=== PATIENT | male | born 1935 | race Caucasian/White ===

== ENCOUNTER 2017-10-26 15:42 | Inpatient (IN) | payer MEDICARE, BC ==
[2017-10-26] VITALS (7 sets, daily range): BP systolic 156–180; BP diastolic 72–81; PULSE 74–91; RESP 16–20; TEMP 101.3; O2SAT 95–97
[~2017-10-26] VITALS: Ht 180.3 cm; Wt 96.0 kg
[2017-10-26] MEDS ORDERED: SODIUM CHLOR 0.9% 1000 ML INJ 1,000 ML IV ONE (15:45)
--- NOTE | 2017-10-26 15:50 | PD ---
HPI Chief Complaint: Stroke Alert Time Seen by Provider: 15:45 Travel History International Travel<30 days: No Contact w/Intl Traveler<30days: No History of Present Illness HPI 81-year-old male arrives as a stroke alert. Approximately 1 hour 40 minutes prior to ER arrival the patient developed aphagia. He right-sided facial droop was also observed. EMS reports blood glucose is about 85 and the blood pressure was about 160/90. Patient reportedly has a history of stroke. He takes Plavix. He does not take any direct oral anticoagulant or Coumadin or additional anticoagulants otherwise. No seizure-like activity proceeded this started according to EMS. FORMERLY [facility], [facility] Social History Tobacco Use: No Allergies-Medications (Allergen,Severity, Reaction): Coded Allergies: amoxicillin (Verified Allergy, Intermediate, Diarrhea, 10/26/17) Reported Meds & Prescriptions Reported Meds & Active Scripts Active Reported Aspirin 81 Mg Chew 81 Mg CHEW DAILY Allopurinol 100 Mg Tab 100 Mg PO DAILY Amlodipine (Amlodipine Besylate) 5 Mg Tab 5 Mg PO DAILY Simvastatin 40 Mg Tab 40 Mg PO HS Plavix (Clopidogrel Bisulfate) 75 Mg Tab 75 Mg PO DAILY Atenolol 25 Mg Tab 25 Mg PO DAILY Metoprolol Tartrate 50 Mg Tab 50 Mg PO DAILY Review of Systems ROS Limitations: Clinical Condition Physical Exam Narrative GENERAL: 81 M, WNWD, SKIN: Warm and dry. HEAD: Atraumatic. Normocephalic. EYES: Pupils equal and round. No scleral icterus. No injection or drainage. ENT: No nasal bleeding or discharge. Mucous membranes pink and moist. NECK: Trachea midline. No JVD. CARDIOVASCULAR: Regular rate and rhythm. RESPIRATORY: No accessory muscle use. Clear to auscultation. Breath sounds equal bilaterally. GASTROINTESTINAL: Abdomen soft, non-tender, nondistended. Hepatic and splenic margins not palpable. MUSCULOSKELETAL: Extremities without clubbing, cyanosis, or edema. No obvious deformities. NEUROLOGICAL: Aphasia present. No dysarthria. Minima R facial droop. No focal CN otherwise. No pronator drift or extremity weakness. PSYCHIATRIC: Appropriate mood and affect; insight and judgment normal. Data Data Last Documented VS Vital Signs Date Time Temp Pulse Resp B/P (MAP) Pulse Ox O2 Delivery O2 Flow Rate FiO2 10/26/17 16:14 96 Nasal Cannula 2.00 10/26/17 15:51 82 18 156/72 (100) Orders Orders Diet Npo (10/26/17 Dinner) Activity Bed Rest (10/26/17 ) Electrocardiogram (10/26/17 ) I-Stat Profile (10/26/17 15:45) Prothrombin Time / Inr (Pt) (10/26/17 15:45) Act Partial Throm Time (Ptt) (10/26/17 15:45) Complete Blood Count With Diff (10/26/17 15:45) Fibrinogen (10/26/17 15:45) Creatine Kinase (Cpk) (10/26/17 15:45) Troponin I (10/26/17 15:45) Drug Screen, Random Urine (10/26/17 15:45) Type And Screen (10/26/17 15:45) Ct Brain W/O Iv Contrast(Rout) (10/26/17 ) Cta Brain W Iv Contrast W 3d (10/26/17 15:45) Cta Neck W Iv Contrast W 3d (10/26/17 15:45) Consult Neurology (10/26/17 ) Blood Glucose (10/26/17 15:45) Ecg Monitoring (10/26/17 15:45) Neuro Checks Q2HX12,Q4H (10/26/17 15:45) Nursing Bedside Swallow Assess .ONCE (10/26/17 15:45) Iv Access Insert/Monitor (10/26/17 15:45) NPO (10/26/17 15:45) Oximetry (10/26/17 15:45) Resp Oxygen Nc Stroke (10/26/17 ) Sodium Chlor 0.9% 1000 Ml Inj (Ns 1000 M (10/26/17 15:45) Cath For Specimen (10/26/17 15:45) ^ Call Pharmacy (10/26/17 15:54) Nih Stroke Scale - Nihss .ONCE (10/26/17 15:54) Urinary Catheter Insert/Apply (10/26/17 15:54) Anticoagulant Alert (10/26/17 15:54) ^ Post Infusion Restrictions (10/26/17 15:54) ^ Medication Alert (10/26/17 15:54) Vital Signs (Adult) .As directed (10/26/17 15:54) Notify Dr: Blood Pressure (10/26/17 15:54) ^ Medication Alert (10/26/17 15:54) Alteplase Bolus (Activase Bolus) (10/26/17 16:00) Alteplase Drip (Activase Drip) (10/26/17 16:00) Sodium Chloride 0.9% Inj (Ns Inj) (10/26/17 16:00) Misc Nursing Information (10/26/17 16:00) Resp Oxygen Nc Stroke (10/26/17 ) Ct Brain W/O Iv Contrast(Rout) (10/27/17 ) (Hub Use Only)Inp Phy Cons/Ref (10/26/17 ) Iodixanol 320 Inj (Rad Ct) (Visipaque 32 (10/26/17 16:11) Admit Order (Ed Use Only) (10/26/17 ) Power Sewing Machine Operator / Telemetry RUBEN.Q8H (10/26/17 17:13) Vital Signs (Adult) Q4H (10/26/17 17:13) Activity Bed Rest (10/26/17 17:13) Labs Laboratory Tests Test 10/26/17 15:45 White Blood Count 6.5 TH/MM3 Red Blood Count 4.85 MIL/MM3 Hemoglobin 14.9 GM/DL Bedside Hemoglobin 15.6 G/DL Hematocrit 45.0 % Bedside Hematocrit 46.0 % Mean Corpuscular Volume 92.9 FL Mean Corpuscular Hemoglobin 30.7 PG Mean Corpuscular Hemoglobin Concent 33.1 % Red Cell Distribution Width 14.8 % Platelet Count 184 TH/MM3 Mean Platelet Volume 7.9 FL Neutrophils (%) (Auto) 74.1 % Lymphocytes (%) (Auto) 11.5 % Monocytes (%) (Auto) 11.3 % Eosinophils (%) (Auto) 2.3 % Basophils (%) (Auto) 0.8 % Neutrophils # (Auto) 4.8 TH/MM3 Lymphocytes # (Auto) 0.7 TH/MM3 Monocytes # (Auto) 0.7 TH/MM3 Eosinophils # (Auto) 0.1 TH/MM3 Basophils # (Auto) 0.1 TH/MM3 CBC Comment DIFF FINAL Differential Comment Prothrombin Time 10.4 SEC Prothromb Time International Ratio 1.0 RATIO Activated Partial Thromboplast Time 24.9 SEC Fibrinogen 442 mg/dL Bedside Sodium 140 MMOL/L Bedside Potassium 4.7 MMOL/L Bedside Chloride 102 MMOL/L Bedside Blood Urea Nitrogen 21 MG/DL Bedside Creatinine 1.3 MG/DL Bedside Glucose 122 MG/DL Hemoglobin A1c 5.5 % Total Creatine Kinase 43 U/L Troponin I LESS THAN 0.02 NG/ML [facility] Medical Screen Exam Complete: Yes Emergency Medical Condition: Yes Differential Diagnosis Hemorrhagic stroke, ischemic stroke, seizure Narrative Course CBC & BMP Diagram 10/26/17 15:[address] 10/26/17 0000 Signed Impressions: Service Date/Time: October 15:51 - CONCLUSION: Unremarkable study except for old strokes in left temporal and low parietal region on the left. Quinten Handley MD The patient has aphasia with trace right-sided facial droop. After discussing the case in great detail with the she reveals he had rectal bleeding about 2 weeks ago while on Xarelto which unfortunately renders the patient ineligible for TPA administration. This was explained to the and the patient who verbalizes understanding. We will proceed with admission including diagnostic evaluation under [facility] service. D/W Dr Pate. Critical Care Narrative Aggregate critical care time was 40 minutes. Time to perform other separately billable procedures was not included in the critical care time. My time did not include minutes spent treating any other patients simultaneously or on activities that did not directly contribute to the patient's treatment. The services I provided to this patient were to treat and/or prevent clinically significant deterioration that could result in: Permanent deficit/weakness I provided critical care services requiring my management, as noted below: Chart data review, documentation time, medication orders and management, vital sign assessments/reviewing monitor data, ordering and reviewing lab tests, ordering and interpreting/reviewing x-rays and diagnostic studies, care of the patient and discussion of the patient with the admitting physicians. Stroke Alert NIHSS NIH Stroke Scale Result: 4 NIHSS Time Completed: 16:29 Thrombolytic Contraindications Contraindications: Bleeding Diathesis Diagnosis Diagnosis: Primary Impression: Stroke Qualified Codes: I63.9 - Cerebral infarction, unspecified Admitting Physician Requests: Admit Lino Kincaid MD Oct 26, 2017 15:50
[2017-10-26] MEDS ORDERED: ALTEPLASE DRIP IV ONE (16:00)
[2017-10-26] MEDS ORDERED: SODIUM CHLORIDE 0.9% 50 ML BAG IVF ONE (16:00)
[2017-10-26] MEDS ORDERED: ALTEPLASE BOLUS 9 MG/9 ML SYR IV ONE (16:00)
[2017-10-26] MEDS ORDERED: MISCELLANEOUS NURSING INFORMATION XX PRN (16:00)
--- NOTE | 2017-10-26 16:06 | RADRPT ---
EXAM DATE/TIME: 10/26/2017 15:51 [facility] COMPARISON: No previous studies available for comparison. INDICATIONS : Stroke alert. Left facial droop, left side weakness. RADIATION DOSE: 41.85 CTDIvol (mGy) This report was called by Dr. Handley to <Dr. Kincaid> at <1604 hrs.> MEDICAL HISTORY : Non-responsive. SURGICAL HISTORY : Non-responsive. ENCOUNTER: Initial ACUITY: 1 day PAIN SCALE: Non-responsive LOCATION: cranial TECHNIQUE: Multiple contiguous axial images were obtained of the head. Using automated exposure control and adj ustment of the mA and/or kV according to patient size, radiation dose was kept as low as reasonably a chievable to obtain optimal diagnostic quality images. DICOM format image data is available electro nically for review and comparison. FINDINGS: CEREBRUM: Areas of encephalomalacia in the left temporal lobe and left low parietal region. The ventricles are normal for age. No evidence of midline shift, mass lesion, hemorrhage or acute infarction. No extra -axial fluid collections are seen. POSTERIOR FOSSA: The cerebellum and brainstem are intact. The 4th ventricle is midline. The cerebellopontine angle i s unremarkable. EXTRACRANIAL: The visualized portion of the orbits is intact. SKULL: The calvaria is intact. No evidence of skull fracture. CONCLUSION: Unremarkable study except for old strokes in left temporal and low parietal region on the left. Quinten Handley MD on October 26, 2017 at 16:02 Board Certified Radiologist. This report was verified electronically.
[2017-10-26 16:09] LABS: PROTHROMBIN TIME - PATIENT 10.4 SEC (9.8-11.6)
[2017-10-26] MEDS ORDERED: IODIXANOL 320 MG/ML 10 ML VIAL (for Rad CT) IVCONTRAST ONE (16:11)
[2017-10-26 16:25] LABS: AUTOMATED NEUTROPHIL # 4.8 TH/MM3 (1.8-7.7); BASOPHIL # 0.1 TH/MM3 (0-0.2); BASOPHIL % 0.8 % (0.0-2.0); EOSINOPHIL # 0.1 TH/MM3 (0-0.4); EOSINOPHIL % 2.3 % (0.0-4.0); HEMOGLOBIN 14.9 GM/DL (13.0-17.0); LYMPH % 11.5 % (9.0-44.0); LYMPHOCYTE # 0.7 TH/MM3 (1.0-4.8); MEAN CELL VOLUME 92.9 FL (80.0-100.0); MEAN CORPUSCULAR HEMOGLOBIN 30.7 PG (27.0-34.0); MEAN CORPUSCULAR HGB CONC 33.1 % (32.0-36.0); MEAN PLATELET VOLUME 7.9 FL (7.0-11.0); MONO % 11.3 % (0.0-8.0); MONOCYTE # 0.7 TH/MM3 (0-0.9); NEUT % 74.1 % (16.0-70.0); PLATELET COUNT 184 TH/MM3 (150-450); RED BLOOD COUNT 4.85 MIL/MM3 (4.50-5.90); RED CELL DISTRIBUTION WIDTH 14.8 % (11.6-17.2); WHITE BLOOD COUNT 6.5 TH/MM3 (4.0-11.0)
--- NOTE | 2017-10-26 16:30 | RADRPT ---
EXAM DATE/TIME: 10/26/2017 15:51 [facility] COMPARISON: No previous studies available for comparison. INDICATIONS : Stroke alert. Left side facial droop, left side weakness. IV CONTRAST: 98 cc Visipaque (iodixanol) IV ; Cumulative dose for multiple exams. RADIATION DOSE: 28.50 CTDIvol (mGy) ; Combined studies MEDICAL HISTORY : Non-responsive. SURGICAL HISTORY : Non-responsive. ENCOUNTER: Initial ACUITY: 1 day PAIN SCALE: Non-responsive LOCATION: cranial TECHNIQUE: Volumetric scanning was performed using a multi-row detector CT scanner. The data was post processed with a variety of visualization algorithms including full volume maximum intensity projection, multi -planar sliding thin slab reformation, curved planar reformation, and surface rendering techniques. Using automated exposure control and adjustment of the mA and/or kV according to patient size, radiat ion dose was kept as low as reasonably achievable to obtain optimal diagnostic quality images. DICO M format image data is available electronically for review and comparison. FINDINGS: There is excellent visualization of the major intracranial arteries out to the second-order branch ve ssels. There is no evidence for aneurysm, vessel truncation or stenosis, and no evidence for vascula r malformation. There is a patent posterior to indicating artery on the right which contributes to significant flow t o the posterior cerebral circulation. CONCLUSION: Normal examination. Quinten Handley MD on October 26, 2017 at 16:26 Board Certified Radiologist. This report was verified electronically.
--- NOTE | 2017-10-26 16:36 | RADRPT ---
EXAM DATE/TIME: 10/26/2017 15:51 [facility] COMPARISON: No previous studies available for comparison. INDICATIONS : Stroke alert. Left side facial droop, left side weakness. IV CONTRAST: 98 cc Visipaque (iodixanol) IV ; Cumulative dose for multiple exams. RADIATION DOSE: 28.50 CTDIvol (mGy) ; Combined studies MEDICAL HISTORY : Non-responsive. SURGICAL HISTORY : Non-responsive. ENCOUNTER: Initial ACUITY: 1 day PAIN SCALE: Non-responsive LOCATION: neck Elevated flow velocities and ICA/CCA ratios have been found to correlate with increased degrees of vessel stenosis, calculated as percentage of diameter relative to a normal segment of distal ICA/CCA. TECHNIQUE: Volumetric scanning was performed using a multirow detector CT scanner. The data was post processed with a variety of visualization algorithms including full-volume maximum intensity projection, multip lanar sliding thin-slab reformation, curved-planar reformation, and surface-rendering techniques. Us ing automated exposure control and adjustment of the mA and/or kV according to patient size, radiatio n dose was kept as low as reasonably achievable to obtain optimal diagnostic quality images. DICOM f ormat image data is available electronically for review and comparison. FINDINGS: AORTIC ARCH: Three-vessel arch anatomy is identified. The origin of the arch vessels is obscured by streak artifac t from dense contrast in the innominate vein. Where seen, the vessels appear satisfactory. RIGHT CAROTID: The common carotid artery is intact. The carotid bulb has a normal configuration without ulceration o r narrowing. The internal carotid artery lumen is smooth without stenosis. The external carotid nicolas ry is intact. LEFT CAROTID: The common carotid artery is intact. The carotid bulb has a normal configuration without ulceration or narrowing. The internal carotid artery lumen is smooth without stenosis. The external carotid ar ken is intact. VERTEBRALS: The vertebral arteries have a symmetric diameter. No stenotic lesions are seen. CONCLUSION: No evidence of carotid stenosis Rigoberto Elkins MD on October 26, 2017 at 16:30 Board Certified Radiologist. This report was verified electronically.
[2017-10-26 16:44] LABS: TROPONIN I LESS THAN 0.02 NG/ML (0.02-0.05)
[2017-10-26] MEDS ORDERED: DEXTROSE 50% IN WATER 50 ML VIAL(D50) IV PUSH PRN (17:15)
[2017-10-26] MEDS ORDERED: GLUCAGON 1 MG/ML VIAL OTHER PRN (17:15)
[2017-10-26] MEDS ORDERED: SODIUM CHLORIDE 0.9% FLUSH 10 ML FLUSH IV FLUSH PRN (17:15)
[2017-10-26] MEDS ORDERED: ATEN25TA PO (17:33)
[2017-10-26] MEDS ORDERED: ALLO100T PO (17:33)
[2017-10-26] MEDS ORDERED: METO50TA PO (17:33)
[2017-10-26] MEDS ORDERED: AMLO5TAB2 PO (17:33)
[2017-10-26] MEDS ORDERED: SIMV40TA PO (17:33)
[2017-10-26] MEDS ORDERED: PLAV75TA29 PO (17:33)
[2017-10-26] MEDS ORDERED: ASPI-516 CHEW (17:33)
--- NOTE | 2017-10-26 19:36 | EKG ---
Date Performed: 10/26/2017 Time Performed: 17:04:18 PTAGE: 81 years EKG: Sinus rhythm NORMAL ECG NO PREVIOUS TRACING DOCTOR: Tima Meek Interpretating Date/Time 10/26/2017 19:35:38
[2017-10-26] MEDS: INSULIN ASPART SUPPLEMENTAL SCALE SQ SCH (21:00)
[2017-10-26] MEDS: SODIUM CHLORIDE 0.9% FLUSH 10 ML FLUSH IV FLUSH SCH (21:40)
--- NOTE | 2017-10-26 21:41 | RADRPT ---
EXAM DATE/TIME: 10/26/2017 20:08 [facility] COMPARISON: CTA BRAIN W 3D RECON, October 26, 2017, 15:51. INDICATIONS : CVA. MEDICAL HISTORY : Hypertension. SURGICAL HISTORY : Total knee replacement, left. Total knee replacement, right. Carotid endarterectomy. Cataracts. ENCOUNTER: Subsequent ACUITY: 1 day PAIN SCORE: 0/10 LOCATION: cranial Please note a normal MRA of the brain does not entirely exclude the possibility of a small aneurysm, nor the possibility of distal intracranial vessel disease. TECHNIQUE: 3D time of flight MRA was performed. Source images, multiplanar STS MIP, and 3D volume MIP reconstru ctions were reviewed. FINDINGS: There is excellent visualization of the major intracranial arteries out to the second-order branch ve ssels. There is no evidence for aneurysm, vessel truncation or stenosis, and no evidence for vascula r malformation. CONCLUSION: Normal examination. Dhiraj Quintanilla Jr., MD on October 26, 2017 at 21:37 Board Certified Radiologist. This report was verified electronically.
--- NOTE | 2017-10-26 21:43 | RADRPT ---
EXAM DATE/TIME: 10/26/2017 20:08 [facility] COMPARISON: CT BRAIN W/O CONTRAST, October 26, 2017, 15:51. INDICATIONS : CVA. MEDICAL HISTORY : Hypertension. SURGICAL HISTORY : Total knee replacement, left. Total knee replacement, right. Carotid endarterectomy. Cataracts. ENCOUNTER: Subsequent ACUITY: 1 day PAIN SCORE: 0/10 LOCATION: cranial TECHNIQUE: Multiplanar, multisequence MRI of the brain was performed without contrast. FINDINGS: CEREBRUM: Areas of encephalomalacia involving the left frontal lobe and left temporal lobe. The ventricles are normal for age. No evidence of midline shift, mass lesion, hemorrhage or acute infarction. No extra axial fluid collections are seen. The pituitary gland and suprasellar cistern are normal in configur ation. WHITE MATTER: Extensive periventricular high flair signal involving both cerebral hemispheres. POSTERIOR FOSSA: The cerebellum and brainstem are intact. The 4th ventricle is midline. The cerebellopontine angle is unremarkable. The cerebellar tonsils are normal in position. DIFFUSION IMAGING: No focal areas of restricted diffusion are seen. No evidence of acute infarction. EXTRACRANIAL: The visualized portions of the orbits and paranasal sinuses are unremarkable. CONCLUSION: 1. No acute hemorrhage or stroke. 2. Extensive chronic small vessel ischemic change. 3. 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 Dhiraj Quintanilla Jr., MD on October 26, 2017 at 21:39 Board Certified Radiologist. This report was verified electronically.
--- NOTE | 2017-10-26 23:13 | HHI.HP ---
[facility] Unknown Admission Diagnosis Acute Stroke Diagnoses: Travel History International Travel<30 Days: No Contact w/Intl Traveler <30 Da: No Traveled to Known Affected Are: No History of Present Illness History from ER notes, and review of medical records. Patient is somewhat of a poor historian because he still is having expressive aphasia at the time of my exam. He came into the emergency room as a stroke alert. Per ER triage note: PER EMS: PT FRMO HOME LAST NORMAL 14:00 PT PRESENTED WITH L FACIAL DROOP AND EXPRESSIVE EPHASIA. REPORT OF SOME L SIDED WEAKNESS. PT AT ED, PT HAS L FACIAL DROOP, CONFUSION AND EXPRESSIVE EPHASIA. Patient was considered to be not a TPA candidate after discussion between the ER physician and neurologist. Nursing staff also reported to me that patient was on Xarelto previously and had a GI bleed about 2 weeks ago which was why he is no longer on it. This is according to his 's report. There is also reports that his symptoms were improving. However on review of records, some of his symptoms seems to be different based on different examinations. At the time of my exam, patient is still having expressive aphasia. However he would have smooth sentences at certain points though. He answered yes when asked about dizziness. He states he is from [place]. He is not able to elaborate on any answers and not able to quantify his symptoms. History is extremely limited because of this. Review of Systems ROS Limitations: Speech Impaired, Poor Historian Except as stated in HPI: all other systems reviewed are Neg Past Family Social History Past Medical History denies cad, dm, copd, asthma, kidney problems,cancer chf cva Hypertension Past Surgical History Not able to give me history Per EMR: Total knee replacements Cataract surgery Allergies: Coded Allergies: amoxicillin (Verified Allergy, Intermediate, Diarrhea, 10/26/17) Family History Unknown. Social History denies smoking drinks "little bit" Physical Exam Vital Signs Vital Signs Date Time Temp Pulse Resp B/P (MAP) Pulse Ox O2 Delivery O2 Flow Rate FiO2 10/26/17 22:51 Nasal Cannula 2.00 1/18/18 19:30 91 16 171/79 (109) 96 Nasal Cannula 2.00 10/26/17 18:16 74 16 161/79 (106) 97 Room Air 10/26/17 16:14 96 Nasal Cannula 2.00 10/26/17 16:14 96 Nasal Cannula 2.00 10/26/17 15:51 82 18 156/72 (100) 97 10/26/17 15:40 95 2.00 10/26/17 15:40 96 Nasal Cannula 2.00 Physical Exam GENERAL: This is a well-nourished, well-developed patient, in no apparent distress. SKIN: No rashes, ecchymoses or lesions. Cool and dry. HEAD: Atraumatic. Normocephalic. No temporal or scalp tenderness. EYES: No scleral icterus. No injection or drainage. ENT: Nose without bleeding, purulent drainage or septal hematoma. Airway patent. NECK: Trachea midline. No JVD Supple, nontender, no meningeal signs. CARDIOVASCULAR: Regular rate and rhythm without murmurs, gallops, or rubs. RESPIRATORY: Clear to auscultation. Breath sounds equal bilaterally. No wheezes , rales, or rhonchi. GASTROINTESTINAL: Abdomen soft, non-tender, nondistended. No guarding. MUSCULOSKELETAL: Extremities without clubbing, cyanosis, or edema. No calf tenderness. NEUROLOGICAL: Awake and alert. Cranial nerves II through XII intact. Power 5 out of 5 in both upper and lower extremities. Expressive aphasia. Laboratory Laboratory Tests Test 10/26/17 15:45 White Blood Count 6.5 Red Blood Count 4.85 Hemoglobin 14.9 Bedside Hemoglobin 15.6 Hematocrit 45.0 Bedside Hematocrit 46.0 Mean Corpuscular Volume 92.9 Mean Corpuscular Hemoglobin 30.7 Mean Corpuscular Hemoglobin Concent 33.1 Red Cell Distribution Width 14.8 Platelet Count 184 Mean Platelet Volume 7.9 Neutrophils (%) (Auto) 74.1 Lymphocytes (%) (Auto) 11.5 Monocytes (%) (Auto) 11.3 Eosinophils (%) (Auto) 2.3 Basophils (%) (Auto) 0.8 Neutrophils # (Auto) 4.8 Lymphocytes # (Auto) 0.7 Monocytes # (Auto) 0.7 Eosinophils # (Auto) 0.1 Basophils # (Auto) 0.1 CBC Comment DIFF FINAL Differential Comment Prothrombin Time 10.4 Prothromb Time International Ratio 1.0 Activated Partial Thromboplast Time 24.9 Fibrinogen 442 Bedside Sodium 140 Bedside Potassium 4.7 Bedside Chloride 102 Bedside Blood Urea Nitrogen 21 Bedside Creatinine 1.3 Bedside Glucose 122 Total Creatine Kinase 43 Troponin I LESS THAN 0.02 Result Diagram: 10/26/17 1545 Imaging Last 48 hours Impressions Neck CTA 10/26/17 1545 Signed Impressions: Service Date/Time: October 15:51 - CONCLUSION: No evidence of carotid stenosis Rigoberto Elkins MD Head CTA 10/26/17 1545 Signed Impressions: Service Date/Time: October 15:51 - CONCLUSION: Normal examination. Quinten Handley MD Head Magnetic Resonance Angiography 10/26/17 0000 Signed Impressions: Service Date/Time: October 20:08 - CONCLUSION: Normal examination. Dhiraj Quintanilla Jr., MD Head CT 10/26/17 0000 Signed Impressions: Service Date/Time: October 15:51 - CONCLUSION: Unremarkable study except for old strokes in left temporal and low parietal region on the left. Quinten Handley MD Brain MRI 10/26/17 0000 Signed Impressions: Service Date/Time: October 20:08 - CONCLUSION: 1. No acute hemorrhage or stroke. 2. Extensive chronic small vessel ischemic change. 3. 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 MD Oli Carlos Jr. VTE Risk Assessment Caprini VTE Risk Assessment: Mod/High Risk (score >= 2) Caprini Risk Assessment Model Point Value = 1 Point Value = 2 Point Value = 3 Point Value = 5 Age 41-60 Minor surgery BMI > 25 kg/m2 Swollen legs Varicose veins or History of unexplained or recurrent spontaneous Oral contraceptives or hormone replacement Sepsis (< 1 month) Serious lung disease, including pneumonia (< 1 month) Abnormal pulmonary function Acute myocardial infarction Congestive heart failure (< 1 month) History of inflammatory bowel disease Medical patient at bed rest Age 61-74 Arthroscopic surgery Major open surgery (> 45 min) Laparoscopic surgery (> 45 min) Malignancy Confined to bed (> 72 hours) Immobilizing plaster cast Central venous access Age >= 75 History of VTE Family history of VTE Factor V Leiden Prothrombin [id number] Lupus anticoagulant Anticardiolipin antibodies Elevated serum homocysteine Heparin-induced thrombocytopenia Other congenital or acquired thrombophilia Stroke (< 1 month) Elective arthroplasty Hip, pelvis, or leg fracture Acute spinal cord injury (< 1 month) Prophylaxis Regimen Total Risk Factor Score Risk Level Prophylaxis Regimen 0-1 Low Early ambulation 2 Moderate Order ONE of the following: *Sequential Compression Device (SCD) *Heparin 5000 units SQ BID 3-4 Higher Order ONE of the following medications: *Heparin 5000 units SQ TID *Enoxaparin/Lovenox 40 mg SQ daily (WT < 150 kg, CrCl > 30 mL/min) *Enoxaparin/Lovenox 30 mg SQ daily (WT < 150 kg, CrCl > 10-29 mL/min) *Enoxaparin/Lovenox 30 mg SQ BID (WT < 150 kg, CrCl > 30 mL/min) AND/OR *Sequential Compression Device (SCD) 5 or more Highest Order ONE of the following medications: *Heparin 5000 units SQ TID (Preferred with Epidurals) *Enoxaparin/Lovenox 40 mg SQ daily (WT < 150 kg, CrCl > 30 mL/min) *Enoxaparin/Lovenox 30 mg SQ daily (WT < 150 kg, CrCl > 10-29 mL/min) *Enoxaparin/Lovenox 30 mg SQ BID (WT < 150 kg, CrCl > 30 mL/min) AND *Sequential Compression Device (SCD) Assessment and Plan Assessment and Plan Impression: TIA versus CVA. 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 Possible he now presented with TIA symptoms and his acute deficits have been gone. Current deficits are likely at his baseline. Suspects underlying infectious etiology possibly causing his acute changes as well. Comorbid conditions: Hypertension History of CVA History of CHF per patient Plan: Telemetry monitoring. Imaging studies reviewed personally. MRI and MRA of the brain did not reveal any acute pathology. Patient does have temporal lobes old infarcts. Will monitor for evidence of underlying infection. I do suspect the patient may have some underlying illness that is making his acute changes and this may have been interpreted as a TIA/CVA in someone with baseline speech deficits. Will need more collateral information from his regarding his baseline neurological status. In the meantime, I would obtain urinalysis and urine culture, chest x-ray. DVT prophylaxis with lovenox Discussed Condition With patient, nursing staff Physician Certification 2 Midnight Certification Type: Admission for Inpatient Services Order for Inpatient Services The services are ordered in accordance with Medicare regulations or non- Medicare payer requirements, as applicable. In the case of services not specified as inpatient-only, they are appropriately provided as inpatient services in accordance with the 2-midnight benchmark. Estimated LOS (days): 2 days is the estimated time the patient will need to remain in the hospital, assuming treatment plan goals are met and no additional complications. Post-Hospital Plan: Home Melinda Benavidez MD Oct 26, 2017 23:13
[2017-10-27 00:35] VITALS: BP 155/68; PULSE 71; RESP 21; TEMP 101.3; O2SAT 94
--- NOTE | 2017-10-27 01:10 | RADRPT ---
EXAM DATE/TIME: 10/27/2017 00:42 [facility] COMPARISON: No previous studies available for comparison. INDICATIONS : Rule out pneumonia. MEDICAL HISTORY : Hypertension. SURGICAL HISTORY : Total knee replacement, left. Total knee replacement, right. Carotid endarterectomy. Cataracts. ENCOUNTER: Initial ACUITY: 1 day PAIN SCORE: Non-responsive. LOCATION: Bilateral chest FINDINGS: Subtle left lung base airspace disease. Suspected tortuous thoracic aorta. Cardiac silhouette is with in normal limits. Osseous structures are intact. CONCLUSION: 1. Subtle left lung base airspace disease, likely atelectasis. However, developing pneumonia cannot b e excluded in the appropriate clinical setting. Shon Burnette MD on October 27, 2017 at 1:07 Board Certified Radiologist. This report was verified electronically.
[2017-10-27 03:44] VITALS: PULSE 74
[2017-10-27 04:40] VITALS: BP 169/80; PULSE 77; RESP 20; TEMP 98.8; O2SAT 94
[2017-10-27 07:39] LABS: CHOLESTEROL/ HDL RATIO 2.67 RATIO; HDL CHOLESTEROL 54.2 MG/DL (40.0-60.0)
[2017-10-27 08:00] VITALS: BP 180/83; PULSE 76; RESP 18; TEMP 98.7; O2SAT 94
[2017-10-27] MEDS: INSULIN ASPART SUPPLEMENTAL SCALE SQ SCH ×4 (08:00→20:58)
--- NOTE | 2017-10-27 08:11 | MB ---
cc: JASMINE LAWRENCE MD DATE OF CONSULTATION 11/05/2017 REASON FOR CONSULTATION Stroke alert HISTORY OF PRESENT ILLNESS Mr. Meredith is an 82-year-old male who arrives to [facility] as a stroke alert. It was reported that the patient developed difficulty in the speech with right-sided facial droop. Last time seen was one hour 40 minutes prior to presentation. Blood pressure upon arrival 160/90, blood glucose 85. The patient reportedly has a history of stroke with no residual deficits. He is currently on Plavix. states that while he was on Xarelto he developed rectal bleeding about two weeks ago, thus Xarelto was stopped and is currently on Plavix. Head CT scan is negative for acute intracranial abnormality. No bleed. NIH stroke scale is four. The patient was deemed not to be a candidate for IV TPA because of resolution of symptoms and NIH stroke scale down to 147, dysarthria and history of recent GI bleed. REVIEW OF SYSTEMS 12-point review of systems is negative except for what is stated in the HPI. PAST MEDICAL HISTORY 1. Hypertension 2. Stroke PAST SURGICAL HISTORY Noncontributory ALLERGIES No known allergies. MEDICATIONS Reviewed in the system, Plavix. FAMILY HISTORY Noncontributory PHYSICAL EXAMINATION GENERAL: Awake, alert, anxious, not in acute distress. HEENT: Atraumatic, normocephalic. Intact vision. NECK: Supple. No signs of meningeal irritation. CARDIOVASCULAR: Regular rate and rhythm. RESPIRATORY: Clear to auscultation. No wheezes. GASTROINTESTINAL: Soft, abdomen. No tenderness. MUSCULOSKELETAL: Without clubbing, cyanosis or edema. NEUROLOGIC: Awake, alert, oriented, subtle dysarthria, no dysphasia. Subtle right facial droop, otherwise other cranial nerves are intact. Upper and lower extremity strength 5/5. No abnormal movements, normal tone. Intact sensation throughout. Reflexes 2+ bilateral symmetrical. Plantars are bilaterally downgoing. PSYCHIATRIC: Appropriate mood and affect. No hallucinations. DIAGNOSTIC STUDIES - Head CT scan without contrast unremarkable except for remote stroke in the left temporal and parietal region. - Head MRA was reported as unremarkable. - Brain MRA, no acute hemorrhage or stroke, extensive chronic small vessel ischemic change. There is encephalomalacia of the left temporal lobe, left frontal lobe suggesting prior infarctions. - Neck CTA with no evidence of carotid stenosis. - Head CTA was reported as a normal examination. DIAGNOSTIC IMPRESSION 1. Stroke alert. The patient was deemed not to be a candidate for IV TPA because of rapidly resolution resulting in an INH stroke scale of one and recent GI bleeding while he was on Xarelto. 2. TIA. The patient is currently on Plavix. 3. Telemetry. 4. Cardiac echo. 5. Add aspirin 81 mg 6. DVT prophylaxis 7. GI prophylaxis Thank you for the opportunity to participate in the care of your patient. MD RSOE Alvarez/BERNICE /10:29 PM /7:46 AM [email or web address]
--- NOTE | 2017-10-27 08:32 | HHI.PR ---
Review/Management Diagnosis 1. Stroke alert. The patient was deemed not to be a candidate for IV TPA because of rapidly resolution resulting in an NIHSS of one and recent GI bleeding while he was on Xarelto. 2. TIA. The patient is currently on Plavix. 3. Persistent dysphasia 4. MRI brain w/o contrast 3. Telemetry. 4. Cardiac echo. 5. Add aspirin 81 mg 6. DVT prophylaxis Diagnosis/Plan: Subjective Subjective Comments Patient still dysphasic No new complaints MRI brain with no evidence of an acute abnormality Active Medications Current Medications Medications (Trade) Dose Ordered Sig/Britney Route Start Time Stop Time Status Last Admin Miscellaneous Information No Heparin, Warfarin, Aspir... UNSCH PRN XX 10/26/17 16:00 10/27/17 15:59 (NS Flush) 2 ml BID IV FLUSH 10/26/17 21:00 10/26/17 21:40 (NS Flush) 2 ml UNSCH PRN IV FLUSH 10/26/17 17:15 (NovoLOG SUPPLEMENTAL SCALE) 1 ACHS SQ 10/26/17 21:00 (D50w (Vial) Inj) 50 ml UNSCH PRN IV PUSH 10/26/17 17:15 (Glucagon Inj) 1 mg UNSCH PRN OTHER 10/26/17 17:15 Allergies Allergies Coded Allergies amoxicillin (Verified Allergy, Intermediate, Diarrhea, 10/26/17) Review of Systems All other ROS: ROS reviewed as documented in chart Exam I&O / VS 10/27/17 10/27/17 10/28/17 15:00 23:00 07:00 Intake Total 0 ml Balance 0 ml Intake Oral 0 ml # Voids 1 # Bowel Movements 0 Vital Signs Date Time Temp Pulse Resp B/P (MAP) Pulse Ox O2 Delivery O2 Flow Rate FiO2 10/27/17 04:40 98.8 77 20 169/80 (109) 94 10/27/17 03:44 74 10/27/17 00:35 101.3 71 21 155/68 (97) 94 10/26/17 23:46 77 10/26/17 22:51 Nasal Cannula 2.00 10/26/17 20:42 101.3 83 20 180/81 (114) 95 10/26/17 19:30 91 16 171/79 (109) 96 Nasal Cannula 2.00 10/26/17 18:16 74 16 161/79 (106) 97 Room Air 10/26/17 16:14 96 Nasal Cannula 2.00 10/26/17 16:14 96 Nasal Cannula 2.00 10/26/17 15:51 82 18 156/72 (100) 97 10/26/17 15:40 95 2.00 10/26/17 15:40 96 Nasal Cannula 2.00 Exam Comments GENERAL: Awake, alert, anxious, not in acute distress. HEENT: Atraumatic, normocephalic. Intact vision. NECK: Supple. No signs of meningeal irritation. CARDIOVASCULAR: Regular rate and rhythm. RESPIRATORY: Clear to auscultation. No wheezes. GASTROINTESTINAL: Soft, abdomen. No tenderness. MUSCULOSKELETAL: Without clubbing, cyanosis or edema. NEUROLOGIC: Awake, alert, oriented, subtle dysarthria, dysphasia. Subtle right facial droop, otherwise other cranial nerves are intact. Upper and lower extremity strength 5/5. No abnormal movements, normal tone. Intact sensation throughout. Reflexes 2+ bilateral symmetrical. Plantars are bilaterally downgoing. PSYCHIATRIC: Appropriate mood and affect. No hallucinations. Objective Radiology Results Last 72 hours Impressions Neck CTA 10/26/17 1545 Signed Impressions: Service Date/Time: October 15:51 - CONCLUSION: No evidence of carotid stenosis Rigoberto Elkins MD Head CTA 10/26/17 1545 Signed Impressions: Service Date/Time: October 15:51 - CONCLUSION: Normal examination. Quinten Handley MD Head Magnetic Resonance Angiography 10/26/17 0000 Signed Impressions: Service Date/Time: October 20:08 - CONCLUSION: Normal examination. Dhiraj Quintanilla Jr., MD Head CT 10/26/17 0000 Signed Impressions: Service Date/Time: October 15:51 - CONCLUSION: Unremarkable study except for old strokes in left temporal and low parietal region on the left. Quinten Handley MD Chest X-Ray 10/26/17 0000 Signed Impressions: Service Date/Time: Friday, October 27, 2017 00:42 - CONCLUSION: 1. Subtle left lung base airspace disease, likely atelectasis. However, developing pneumonia cannot be excluded in the appropriate clinical setting. Shon Burnette MD Brain MRI 10/26/17 0000 Signed Impressions: Service Date/Time: October 20:08 - CONCLUSION: 1. No acute hemorrhage or stroke. 2. Extensive chronic small vessel ischemic change. 3. 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 Dhiraj Quintanilla Jr., MD Micro and Labs Laboratory Tests Test 10/26/17 15:45 10/27/17 06:23 White Blood Count 6.5 Red Blood Count 4.85 Hemoglobin 14.9 Bedside Hemoglobin 15.6 Hematocrit 45.0 Bedside Hematocrit 46.0 Mean Corpuscular Volume 92.9 Mean Corpuscular Hemoglobin 30.7 Mean Corpuscular Hemoglobin Concent 33.1 Red Cell Distribution Width 14.8 Platelet Count 184 Mean Platelet Volume 7.9 Neutrophils (%) (Auto) 74.1 Lymphocytes (%) (Auto) 11.5 Monocytes (%) (Auto) 11.3 Eosinophils (%) (Auto) 2.3 Basophils (%) (Auto) 0.8 Neutrophils # (Auto) 4.8 Lymphocytes # (Auto) 0.7 Monocytes # (Auto) 0.7 Eosinophils # (Auto) 0.1 Basophils # (Auto) 0.1 CBC Comment DIFF FINAL Differential Comment Prothrombin Time 10.4 Prothromb Time International Ratio 1.0 Activated Partial Thromboplast Time 24.9 Fibrinogen 442 Bedside Sodium 140 Bedside Potassium 4.7 Bedside Chloride 102 Bedside Blood Urea Nitrogen 21 Bedside Creatinine 1.3 Bedside Glucose 122 Total Creatine Kinase 43 Troponin I LESS THAN 0.02 Triglycerides Level 69 Cholesterol Level 145 LDL Cholesterol 77 HDL Cholesterol 54.2 Cholesterol/HDL Ratio 2.67 Caitlin Westfall MD Oct 27, 2017 08:32
--- NOTE | 2017-10-27 09:42 | HHI.PR ---
Subjective Remarks Follow-up for possible TIA. Patient is currently resting in bed. He appears to be somewhat confused. is at bedside. No acute concerns. However in the morning patient apparently had another episode episode of his speech difficulty. Objective Vitals Vital Signs Date Time Temp Pulse Resp B/P (MAP) Pulse Ox O2 Delivery O2 Flow Rate FiO2 10/27/17 04:40 98.8 77 20 169/80 (109) 94 10/27/17 03:44 74 10/27/17 00:35 101.3 71 21 155/68 (97) 94 10/26/17 23:46 77 10/26/17 22:51 Nasal Cannula 2.00 10/26/17 20:42 101.3 83 20 180/81 (114) 95 10/26/17 19:30 91 16 171/79 (109) 96 Nasal Cannula 2.00 10/26/17 18:16 74 16 161/79 (106) 97 Room Air 10/26/17 16:14 96 Nasal Cannula 2.00 10/26/17 16:14 96 Nasal Cannula 2.00 10/26/17 15:51 82 18 156/72 (100) 97 10/26/17 15:40 95 2.00 10/26/17 15:40 96 Nasal Cannula 2.00 I/O 10/26/17 10/26/17 10/26/17 10/27/17 10/27/17 10/27/17 07:00 15:00 23:00 07:00 15:00 23:00 Intake Total 0 ml 0 ml Output Total 0 ml Balance 0 ml 0 ml Intake Oral 0 ml 0 ml Output Urine Total 0 ml # Voids 1 # Bowel Movements 0 0 Result Diagram: 10/26/17 1545 Imaging Last Impressions Neck CTA 10/26/17 1545 Signed Impressions: Service Date/Time: October 15:51 - CONCLUSION: No evidence of carotid stenosis Rigoberto Elkins MD Head CTA 10/26/17 1545 Signed Impressions: Service Date/Time: October 15:51 - CONCLUSION: Normal examination. Quinten Handley MD Head Magnetic Resonance Angiography 10/26/17 0000 Signed Impressions: Service Date/Time: October 20:08 - CONCLUSION: Normal examination. Dhiraj Quintanilla Jr., MD Head CT 10/26/17 0000 Signed Impressions: Service Date/Time: October 15:51 - CONCLUSION: Unremarkable study except for old strokes in left temporal and low parietal region on the left. Quinten Handley MD Chest X-Ray 10/26/17 0000 Signed Impressions: Service Date/Time: Friday, October 27, 2017 00:42 - CONCLUSION: 1. Subtle left lung base airspace disease, likely atelectasis. However, developing pneumonia cannot be excluded in the appropriate clinical setting. Shon Burnette MD Brain MRI 10/26/17 0000 Signed Impressions: Service Date/Time: October 20:08 - CONCLUSION: 1. No acute hemorrhage or stroke. 2. Extensive chronic small vessel ischemic change. 3. 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 Dhiraj Quintanilla Jr., MD Objective Remarks GENERAL: Alert, somewhat confused, answers questions appropriately. SKIN: Warm and dry. HEAD: Normocephalic. EYES: No scleral icterus. No injection or drainage. NECK: Supple, trachea midline. No JVD or lymphadenopathy. CARDIOVASCULAR: Regular rate and rhythm without murmurs, gallops, or rubs. RESPIRATORY: Breath sounds equal bilaterally. No accessory muscle use. GASTROINTESTINAL: Abdomen soft, non-tender, nondistended. MUSCULOSKELETAL: No cyanosis, or edema. Neuro: No focal deficits. Somewhat confused. BACK: Nontender without obvious deformity. No CVA tenderness. Procedures None. A/P Problem List: (1) TIA (transient ischemic attack) ICD Code: G45.9 - Transient cerebral ischemic attack, unspecified (2) Hyperlipidemia ICD Code: E78.5 - Hyperlipidemia, unspecified (3) Hypertension ICD Code: I10 - Essential (primary) hypertension Assessment and Plan Mr. Blackburn is a pleasant 81-year-old male who was admitted to the hospital due to a stroke alert. He developed aphasia approximately 1 hour 40 minutes prior to arrival to the emergency department. He also had right-sided facial droop. His blood sugar was 85 and blood pressure was 160/90. Neurology evaluated patient and did not administer TPA. Imaging studies including CTA of the neck and head, MRI brain, MRA head did not reveal any acute stroke. However , patient again had symptoms on 10/27/2017 and Neurology ordered another CT brain without contrast. - Transient ischemic attack - Neurology following patient. - Continue telemetry, aspirin 81 mg daily, Plavix 75 mg daily. - We'll request speech therapy evaluation for swallow - Hypertension - Hyperlipidemia - Continue amlodipine 5 mg daily - Change pravastatin to Lipitor 40 mg daily at bedtime. - Mild delirium - Possibly due to TIA and being in the hospital. Full code. SCDs, Telemetry. Will consider Lovenox if prolong hospitalization anticipated. Aishwarya Bales DO Oct 27, 2017 9:42 am
[2017-10-27] MEDS: SODIUM CHLORIDE 0.9% FLUSH 10 ML FLUSH IV FLUSH SCH ×2 (10:05→21:02)
[2017-10-27 11:11] LABS: BILIRUBIN, URINE NEG (NEG); BLOOD, URINE NEG (NEG); GLUCOSE,URINE NEG (NEG); HYALINE CAST, URINE 1 /lpf (RARE); KETONE, URINE NEG (NEG); MUCUS URINE FEW /lpf (OCC); NITRITE,URINE NEG (NEG); PH, URINE 5.5 (5.0-8.5); URINE COLOR YELLOW (YELLW/STRAW); URINE LEUKOCYTE ESTERASE NEG (NEG)
--- NOTE | 2017-10-27 11:25 | RADRPT ---
EXAM DATE/TIME: 10/27/2017 10:55 [facility] COMPARISON: MRI BRAIN W/O CONTRAST, October 26, 2017, 20:08. CT BRAIN W/O CONTRAST, Yayo velazco 2017, 15:51. INDICATIONS : CVA. Dysphagia, new onset. MEDICAL HISTORY : Hypertension. SURGICAL HISTORY : Carotid endarterectomy. Total knee replacement, right. Total knee replacement, left. ENCOUNTER: Initial ACUITY: 2 day PAIN SCORE: 0/10 LOCATION: cranial TECHNIQUE: Multiplanar, multisequence MRI of the brain was performed without contrast. FINDINGS: CEREBRUM: The ventricles are normal for age. No evidence of midline shift, mass lesion, hemorrha ge or acute infarction. No extraaxial fluid collections are seen. The pituitary gland and suprasell ar cistern are normal in configuration. Encephalomalacia left temporal and parietal region consistent with remote insult infarct. WHITE MATTER: Extensive periventricular deep white matter microvascular ischemic demyelinization. . POSTERIOR FOSSA: The cerebellum and brainstem are intact. The 4th ventricle is midline. The cere bellopontine angle is unremarkable. The cerebellar tonsils are normal in position. DIFFUSION IMAGING: No focal areas of restricted diffusion are seen. No evidence of acute infarct ion. EXTRACRANIAL: The visualized portions of the orbits and paranasal sinuses are unremarkable. CONCLUSION: Stable MRI of the brain. Extensive chronic deep white matter microvascular ischemic d emyelinization in periventricular demyelinization. Encephalomalacia left temporoparietal region consi stent with remote infarct. No acute intracranial abnormality. Jun Mckinney MD on October 27, 2017 at 11:19 Board Certified Radiologist. This report was verified electronically.
[2017-10-27] MEDS ORDERED: amLODIPine BESYLATE 5 MG TAB PO ONE (11:30)
[2017-10-27] MEDS: CLOPIDOGREL 75 MG TAB PO SCH (11:30)
[2017-10-27] MEDS: ASPIRIN 81 MG CHEW TAB CHEW SCH (11:30)
[2017-10-27 14:26] LABS: HEMOGLOBIN A1C 5.5 % (4.3-6.0)
--- NOTE | 2017-10-27 14:26 | RADRPT ---
EXAM DATE/TIME: 10/27/2017 14:08 [facility] COMPARISON: CTA BRAIN W 3D RECON, October 26, 2017, 15:51. CT BRAIN W/O CONTRAST, October 26, 2017, 15:51. CTA CAROTID ARTERIES W 3D RECON, October 26, 2017, 15:51. INDICATIONS : Follow up stroke. RADIATION DOSE: 41.89 CTDIvol (mGy) MEDICAL HISTORY : Cerebrovascular disease. Hypertension. SURGICAL HISTORY : None. ENCOUNTER: Subsequent ACUITY: 2 days PAIN SCALE: 0/10 LOCATION: cranial TECHNIQUE: Multiple contiguous axial images were obtained of the head. Using automated exposure control and adj ustment of the mA and/or kV according to patient size, radiation dose was kept as low as reasonably a chievable to obtain optimal diagnostic quality images. DICOM format image data is available electro nically for review and comparison. FINDINGS: CEREBRUM: There are patchy areas of encephalomalacia in the left MCA distribution. These are unchanged compared to previous dated 10/26/17 these would be consistent with old areas of infarct. No acute intracranial hemorrhage is identified. No midline shift or other findings to indicate mass effect are evident. No abnormal intra-or extra axial fluid collections are seen. POSTERIOR FOSSA: The cerebellum and brainstem are intact. The 4th ventricle is midline. The cerebellopontine angle i s unremarkable. EXTRACRANIAL: The visualized portion of the orbits is intact. SKULL: The calvaria is intact. No evidence of skull fracture. CONCLUSION: 1. Patchy areas of encephalomalacia in the left parietal cortex most consistent with old areas of inf arct. 2. No acute abnormality seen. The study is stable compared with previous dated 10/26/17. Lino Marshall MD on October 27, 2017 at 14:20 Board Certified Radiologist. This report was verified electronically.
--- NOTE | 2017-10-27 19:20 | ECHRPT ---
Indication: CVA/TIA CONCLUSIONS Normal left ventricular size. Mild concentric left ventricular hypertrophy. The left ventricular systolic function is normal with an estimated ejection fraction in the range of 55-60%. No definite wall motion abnormalities. The aortic valve is not well visualized. Mild aortic valve sclerosis may be present. BP: 169 / 80 HR: 77 Rhythm: MEASUREMENTS (Male / Female) Normal Values Technical Quality:Fair 2D ECHO LV Diastolic Diameter PLAX 4.4 cm 4.2 - 5.9 / 3.9 - 5.3 cm LV Systolic Diameter PLAX 3.5 cm IVS Diastolic Thickness 1.1 cm 0.6 - 1.0 / 0.6 - 0.9 cm LVPW Diastolic Thickness 0.7 cm 0.6 - 1.0 / 0.6 - 0.9 cm LV Relative Wall Thickness 0.4 RV Internal Dim ED PLAX 2.0 cm LA Systolic Diameter LX 3.7 cm 3.0 - 4.0 / 2.7 - 3.8 cm DOPPLER AV Peak Velocity 223.0 cm/s AV Peak Gradient 19.9 mmHg Mitral E Point Velocity 68.6 cm/s Mitral A Point Velocity 83.9 cm/s Mitral E to A Ratio 0.8 FINDINGS LEFT VENTRICLE Normal left ventricular size. Mild concentric left ventricular hypertrophy. The left ventricular systolic function is normal with an estimated ejection fraction in the range of 55-60%. No definite wall motion abnormalities. RIGHT VENTRICLE Normal right ventricular size and systolic function. LEFT ATRIUM The left atrial size is normal. RIGHT ATRIUM The right atrial size is normal. ATRIAL SEPTUM Normal atrial septal thickness without atrial level shunting by limited color doppler interrogation. AORTA The aortic root and proximal ascending aorta are normal in size on limited imaging. MITRAL VALVE Mitral annular calcification is present. AORTIC VALVE The aortic valve is not well visualized. Mild aortic valve sclerosis may be present. TRICUSPID VALVE Structurally normal tricuspid valve. No tricuspid valve stenosis or regurgitation. PULMONARY VALVE The pulmonary valve is not well visualized. VESSELS The inferior vena cava is normal in size. PERICARDIUM No pericardial effusion. Troy Ng MD (Electronically Signed) Final Date:27 October 2017 19:20
[2017-10-27 20:00] VITALS: BP 134/64; PULSE 76; RESP 18; TEMP 100.3; O2SAT 91
[2017-10-27] MEDS ORDERED: PRAVASTATIN SOD 80 MG TAB PO SCH (21:00)
[2017-10-27] MEDS: ATORVASTATIN 40 MG TAB PO SCH (21:01)
[2017-10-28] VITALS (10 sets, daily range): BP systolic 111–152; BP diastolic 58–78; PULSE 61–87; RESP 18–20; TEMP 97.7–99; O2SAT 92–96
[2017-10-28] MEDS: INSULIN ASPART SUPPLEMENTAL SCALE SQ SCH ×4 (07:48→20:28)
[2017-10-28] MEDS: CLOPIDOGREL 75 MG TAB PO SCH (07:48)
[2017-10-28] MEDS: ALLOPURINOL 100 MG TAB PO SCH (07:48)
[2017-10-28] MEDS: amLODIPine BESYLATE 5 MG TAB PO SCH (07:48)
[2017-10-28] MEDS: SODIUM CHLORIDE 0.9% FLUSH 10 ML FLUSH IV FLUSH SCH ×2 (07:50→21:00)
[2017-10-28] MEDS: ASPIRIN 81 MG CHEW TAB CHEW SCH (07:50)
[2017-10-28] MEDS ORDERED: CLOPIDOGREL 75 MG TAB PO SCH (09:00)
[2017-10-28] MEDS ORDERED: ASPIRIN 81 MG CHEW TAB CHEW SCH (09:00)
--- NOTE | 2017-10-28 09:52 | HHI.PR ---
Subjective Remarks sr Objective Vital Signs Date Time Temp Pulse Resp B/P (MAP) Pulse Ox O2 Delivery O2 Flow Rate FiO2 10/28/17 09:32 82 10/28/17 07:54 98.6 66 20 130/70 (90) 92 10/28/17 07:05 Room Air 10/28/17 04:00 98.0 65 18 152/67 (95) 92 10/28/17 00:00 99.0 84 18 121/78 (92) 96 10/27/17 20:00 100.3 76 18 134/64 (87) 91 10/27/17 19:00 Room Air I/O 10/27/17 10/27/17 10/27/17 10/28/17 10/28/17 10/28/17 07:00 15:00 23:00 07:00 15:00 23:00 Intake Total 0 ml Balance 0 ml Intake Oral 0 ml # Voids 1 # Bowel Movements 0 Result Diagram: 10/26/17 1545 Objective Remarks awake abn repetition vff face sym 5/5 Assessment and Plan Assessment and Plan imp he was on asa and plavix when this spell occurred 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
--- NOTE | 2017-10-28 10:39 | RADRPT ---
EXAM DATE/TIME: 10/28/2017 10:13 [facility] COMPARISON: MRI BRAIN W/O CONTRAST, October 27, 2017, 10:55. INDICATIONS : Dysphagia. MEDICAL HISTORY : Hypertension. SURGICAL HISTORY : Carotid endarterectomy. Total knee replacement, left. Total knee replacement, right. ENCOUNTER: Initial ACUITY: 2 day PAIN SCORE: 0/10 LOCATION: cranial Please note a normal MRA of the brain does not entirely exclude the possibility of a small aneurysm, nor the possibility of distal intracranial vessel disease. TECHNIQUE: 3D time of flight MRA was performed. Source images, multiplanar STS MIP, and 3D volume MIP reconstru ctions were reviewed. FINDINGS: There is excellent visualization of the major intracranial arteries out to the second-order branch ve ssels. There is no evidence for aneurysm, vessel truncation or stenosis, and no evidence for vascula r malformation. CONCLUSION: Normal examination. Allison Lozano MD on October 28, 2017 at 10:34 Board Certified Radiologist. This report was verified electronically.
--- NOTE | 2017-10-28 14:00 | HHI.PR ---
Subjective Remarks Patient reports he is doing okay. No new neurological symptoms. Discussed with his at bedside. Objective Vitals Vital Signs Date Time Temp Pulse Resp B/P (MAP) Pulse Ox O2 Delivery O2 Flow Rate FiO2 10/28/17 12:24 66 10/28/17 11:41 98.5 61 20 111/58 (75) 92 10/28/17 10:45 95 21 10/28/17 09:32 82 10/28/17 07:54 98.6 66 20 130/70 (90) 92 10/28/17 07:05 Room Air 10/28/17 04:00 98.0 65 18 152/67 (95) 92 10/28/17 00:00 99.0 84 18 121/78 (92) 96 10/27/17 20:00 100.3 76 18 134/64 (87) 91 10/27/17 19:00 Room Air I/O 10/27/17 10/27/17 10/27/17 10/28/17 10/28/17 10/28/17 07:00 15:00 23:00 07:00 15:00 23:00 Intake Total 0 ml Balance 0 ml Intake Oral 0 ml # Voids 1 # Bowel Movements 0 Result Diagram: 10/26/17 1546 Objective Remarks GENERAL: This is a well-nourished, well-developed patient, in no apparent distress. Some expressive aphasia. CARDIOVASCULAR: Normal rate and regular rhythm without murmurs, gallops, or rubs. RESPIRATORY: Good respiratory efforts. Breath sounds equal and clear to auscultation bilaterally. GASTROINTESTINAL: Abdomen soft, non-tender, non-distended. Normal active bowel sounds MUSCULOSKELETAL: Extremities without cyanosis, or edema. NEURO: Alert & Oriented x4 to person, place, time, situation. Some expressive aphasia. Moves all ext x4 with equal strength. PSYCH: Appropriate mood and affect. Procedures None. A/P Problem List: (1) TIA (transient ischemic attack) ICD Code: G45.9 - Transient cerebral ischemic attack, unspecified (2) Hyperlipidemia ICD Code: E78.5 - Hyperlipidemia, unspecified (3) Hypertension ICD Code: I10 - Essential (primary) hypertension Assessment and Plan 81-year-old male who was admitted to the hospital due to a stroke alert. He developed aphasia approximately 1 hour 40 minutes prior to arrival to the emergency department. He also had right-sided facial droop. His blood sugar was 85 and blood pressure was 160/90. Neurology evaluated patient and he did not meet criteria to administer TPA. Imaging studies including CTA of the neck and head, MRI brain, MRA head did not reveal any acute stroke. However, patient again had symptoms on 10/27/2017 and repeat imaging still negative.. - Transient ischemic attack - Appreciate Neurology following patient. - Continue telemetry, aspirin 81 mg daily, Plavix 75 mg daily. - Neurology requested cardiology consult for loop recorder due to concerns for occult A. fib. History of GI bleed on Xarelto. - Hypertension - Hyperlipidemia - Continue amlodipine 5 mg daily -Pravastatin was changed to Lipitor 40 mg daily at bedtime. - Mild delirium - resolved. Possibly due to TIA and being in the hospital. GI prophylaxis: Stool softener PRN constipation. DVT PPx: SCDs Discharge Planning Patient and his are from [place]. They were due to go back on Monday. Liza Paige MD Oct 28, 2017 14:00
--- NOTE | 2017-10-28 14:56 | MB ---
cc: HARESH KOVACS MD DATE OF CONSULTATION: 10/28/2017 REASON FOR CONSULTATION: Cerebrovascular accident. HISTORY OF PRESENT ILLNESS The patient is a very pleasant 81-year-old gentleman visiting from [place] who presented with a symptoms related to a CVA which included expressive dysphasia. This has essentially resolved, I have been asked to perform a loop recorder to exclude atrial fibrillation as a cause of his CVA. Currently the patient asymptomatic hoping be discharged. He can return [place]. He has no current or prior chest pain, shortness of breath, lightheadedness, dizziness, palpitations or syncope. PAST MEDICAL HISTORY Hypertension. Cerebrovascular accident. CURRENT MEDICATIONS 1. Allopurinol. 2. Amlodipine. 3. Atorvastatin. 4. Aspirin. 5. Plavix. ALLERGIES Amoxicillin PHYSICAL EXAMINATION VITAL SIGNS: Afebrile, pulse 66, respiratory 20, BP 111/58 satting 92% on room air. IN GENERAL: Pleasant well-appearing gentleman in no distress. NECK: No JVD. LUNGS: Clear to auscultation bilaterally. CARDIOVASCULAR SYSTEM: Regular rate and rhythm. No murmurs appreciated. ABDOMEN: Benign. EXTREMITIES: No edema. LABORATORY DATA Sodium 140, Potassium 4.7, chloride 102, BUN 21, creatinine 1.3, glucose 122. cardiac enzymes negative x1. Brain MRI showed deep white matter microvascular ischemic demyelinization and encephalomalacia in the left upper <<1:58>> regions with remote infarct. EKG showed sinus rhythm. Echocardiogram showed ejection fraction at 55-60. IMPRESSION CVA. The patient with a remote CVA and symptoms consistent 20 at least a TIA certainly has a risk of atrial fibrillation as the etiology. However, he currently declines loop recorder given he is from out of town and wishes to pursue that when he gets back home. He understands a potential risk he assumes with delaying this procedure, otherwise asymptomatic and since he is declining loop recorder. I will sign off. Please feel free to call with any further questions. Thank you again for the opportunity to participate in this patient's care. MD BATOOL Norris/qasim /2:17 PM /2:37 PM
[2017-10-28] MEDS: ATORVASTATIN 40 MG TAB PO SCH (20:26)
[2017-10-29] VITALS: BP 139/75; PULSE 68; RESP 20; TEMP 98.4; O2SAT 92
[2017-10-29 00:49] VITALS: PULSE 69
[2017-10-29 04:00] VITALS: BP 143/70; PULSE 65; RESP 20; TEMP 98.4; O2SAT 94
--- NOTE | 2017-10-29 07:34 | HHI.PR ---
Subjective Remarks sr Objective Vital Signs Date Time Temp Pulse Resp B/P (MAP) Pulse Ox O2 Delivery O2 Flow Rate FiO2 10/29/17 04:00 98.4 65 20 143/70 (94) 94 10/29/17 00:49 69 10/29/17 00:00 98.4 68 20 139/75 (96) 92 10/28/17 20:26 Room Air 10/28/17 20:20 87 10/28/17 20:00 97.7 69 20 120/61 (80) 95 10/28/17 15:36 98.5 71 20 122/70 (87) 92 10/28/17 12:24 66 10/28/17 11:41 98.5 61 20 111/58 (75) 92 10/28/17 10:45 95 21 10/28/17 09:32 82 10/28/17 07:54 98.6 66 20 130/70 (90) 92 I/O 10/28/17 10/28/17 10/28/17 10/29/17 10/29/17 10/29/17 07:00 15:00 23:00 07:00 15:00 23:00 Intake Total 600 ml Balance 600 ml Intake Oral 600 ml Result Diagram: 10/26/17 154 Objective Remarks awake STILL SOME MILD APHASIA SLOW TO RESPOND steady on feet vff face sym 5/5 Assessment and Plan Assessment and Plan imp he was on asa and plavix when this spell occurred 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 and some residual 5% aphasia since had r cea 2000 then this spell of aphasia and r droop mri no new cva cta neck and cow neg but a lot of ca++ r siphon region and should check mra cow to look at l intracranial carotid i think we should put in loop recorder in case he has occult afib had gi bleed on xarelto recently for clot in jugular no colonoscopy plan is fu mra cow and eeg and have cards put in loop then he can go back to [place] small sz other possiblilty but no hx of that acc to 10/29/17 no new c/o they want to wait until [place] for loop i think that is mistake but can only rec what they should do mra cow ok can dc after eeg today Bc Tompkins MD Oct 29, 2017 07:34
[2017-10-29] MEDS: INSULIN ASPART SUPPLEMENTAL SCALE SQ SCH (08:09)
[2017-10-29] MEDS: amLODIPine BESYLATE 5 MG TAB PO SCH (08:11)
[2017-10-29] MEDS: ASPIRIN 81 MG CHEW TAB CHEW SCH (08:11)
[2017-10-29] MEDS: CLOPIDOGREL 75 MG TAB PO SCH (08:11)
[2017-10-29] MEDS: SODIUM CHLORIDE 0.9% FLUSH 10 ML FLUSH IV FLUSH SCH (08:11)
[2017-10-29] MEDS: ALLOPURINOL 100 MG TAB PO SCH (08:11)
[2017-10-29 08:23] VITALS: BP 123/69; PULSE 73; RESP 18; TEMP 98.5; O2SAT 93
[2017-10-29 09:14] VITALS: PULSE 69
--- NOTE | 2017-10-29 09:59 | HHI.DCPOC ---
Discharge Care Plan Diagnosis: (1) TIA (transient ischemic attack) (2) Hyperlipidemia (3) Hypertension Goals to Promote Your Health * To prevent worsening of your condition and complications * To maintain your health at the optimal level Directions to Meet Your Goals Take your medications as prescribed Follow your dietary instruction Follow activity as directed Keep your appointments as scheduled Take your immunizations and boosters as scheduled If your symptoms worsen call your PCP, if no PCP go to Urgent Care Center or Emergency Room Smoking is Dangerous to Your Health. Avoid second hand smoke Call the 24-hour hour crisis hotline for domestic abuse at Liza Paige MD Oct 29, 2017 09:59
--- NOTE | 2017-10-29 09:59 | HHI.DS ---
Discharge Summary Admission Date Oct 26, 2017 at 17:16 Discharge Date: Oct 29, 2017 Admitting Diagnosis Acute Stroke (1) TIA (transient ischemic attack) ICD Code: G45.9 - Transient cerebral ischemic attack, unspecified (2) Hyperlipidemia ICD Code: E78.5 - Hyperlipidemia, unspecified (3) Hypertension ICD Code: I10 - Essential (primary) hypertension Procedures None. Brief History - From Admission History from ER notes, and review of medical records. Patient is somewhat of a poor historian because he still is having expressive aphasia at the time of my exam. He came into the emergency room as a stroke alert. Per ER triage note: PER EMS: PT FRMO HOME LAST NORMAL 14:00 PT PRESENTED WITH L FACIAL DROOP AND EXPRESSIVE EPHASIA. REPORT OF SOME L SIDED WEAKNESS. PT AT ED, PT HAS L FACIAL DROOP, CONFUSION AND EXPRESSIVE EPHASIA. Patient was considered to be not a TPA candidate after discussion between the ER physician and neurologist. Nursing staff also reported to me that patient was on Xarelto previously and had a GI bleed about 2 weeks ago which was why he is no longer on it. This is according to his 's report. There is also reports that his symptoms were improving. However on review of records, some of his symptoms seems to be different based on different examinations. At the time of my exam, patient is still having expressive aphasia. However he would have smooth sentences at certain points though. He answered yes when asked about dizziness. He states he is from [place]. He is not able to elaborate on any answers and not able to quantify his symptoms. History is extremely limited because of this. CBC/BMP: 10/26/17 1545 Significant Findings Laboratory Tests Test 10/26/17 15:45 10/27/17 06:23 10/27/17 10:45 Neutrophils (%) (Auto) 74.1 % (16.0-70.0) Monocytes (%) (Auto) 11.3 % (0.0-8.0) Lymphocytes # (Auto) 0.7 TH/MM3 (1.0-4.8) Fibrinogen 442 mg/dL (227-377) Bedside Glucose 122 MG/DL (68-110) Troponin I LESS THAN 0.02 NG/ML Urine Protein 100 mg/dL (NEG-TRACE) Urine Mucus FEW /lpf (OCC) Imaging Last Impressions Head Magnetic Resonance Angiography 10/28/17 0000 Signed Impressions: Service Date/Time: Saturday, October 28, 2017 10:13 - CONCLUSION: Normal examination. K. James Lozano MD Head CT 10/27/17 0000 Signed Impressions: Service Date/Time: Friday, October 27, 2017 14:08 - CONCLUSION: 1. Patchy areas of encephalomalacia in the left parietal cortex most consistent with old areas of infarct. 2. No acute abnormality seen. The study is stable compared with previous dated 10/26/17. Lino Marshall MD Brain MRI 10/27/17 0000 Signed Impressions: Service Date/Time: Friday, October 27, 2017 10:55 - CONCLUSION: Stable MRI of the brain. Extensive chronic deep white matter microvascular ischemic demyelinization in periventricular demyelinization. Encephalomalacia left temporoparietal region consistent with remote infarct. No acute intracranial abnormality. Jun Mckinney MD Neck CTA 10/26/17 1545 Signed Impressions: Service Date/Time: October 15:51 - CONCLUSION: No evidence of carotid stenosis Rigoberto Elkins MD Head CTA 10/26/17 1545 Signed Impressions: Service Date/Time: October 15:51 - CONCLUSION: Normal examination. Quinten Handley MD Chest X-Ray 10/26/17 0000 Signed Impressions: Service Date/Time: Friday, October 27, 2017 00:42 - CONCLUSION: 1. Subtle left lung base airspace disease, likely atelectasis. However, developing pneumonia cannot be excluded in the appropriate clinical setting. Shon Burnette MD PE at Discharge GENERAL: This is a well-nourished, well-developed patient, in no apparent distress. Some expressive aphasia. CARDIOVASCULAR: Normal rate and regular rhythm without murmurs, gallops, or rubs. RESPIRATORY: Good respiratory efforts. Breath sounds equal and clear to auscultation bilaterally. GASTROINTESTINAL: Abdomen soft, non-tender, non-distended. Normal active bowel sounds MUSCULOSKELETAL: Extremities without cyanosis, or edema. NEURO: Alert & Oriented x4 to person, place, time, situation. Some expressive aphasia. Moves all ext x4 with equal strength. PSYCH: Appropriate mood and affect. Pt update on day of discharge Patient reports is feeling well. He wants to go home. Discussed with patient and his at bedside. They will follow-up in [place]. They do not want to have a loop recorder placed during this hospitalization. No new neurological symptoms. Hospital Course 81-year-old male who was admitted to the hospital due to a stroke alert. He developed aphasia approximately 1 hour 40 minutes prior to arrival to the emergency department. He also had right-sided facial droop. His blood sugar was 85 and blood pressure was 160/90. Neurology evaluated patient and he did not meet criteria to administer TPA. Imaging studies including CTA of the neck and head, MRI brain, MRA head did not reveal any acute stroke. However, patient again had symptoms on 10/27/2017 and repeat imaging still negative. The patient's symptoms completely resolved. He was followed by neurology who recommended continuing aspirin and Plavix. Neurology also consulted cardiology for loop recorder due to concerns for occult A. fib. However the patient refused loop recorder placement here. He states he will follow up outpatient when he returns home in [place]. Patient is discharge in good condition to follow up outpatient. Pt Condition on Discharge: Good Discharge Disposition: Discharge Home Discharge Time: <= 30 minutes Discharge Instructions DIET: Follow Instructions for: Heart Healthy Diet Activities you can perform: Regular-No Restrictions Follow up Referrals: Cardiology - 2 Weeks PCP Follow-up - 2 Weeks Continued Medications: Allopurinol (Allopurinol) 100 Mg Tab 100 MG PO DAILY for Gout, #30 TAB 0 Refills Amlodipine (Amlodipine) 5 Mg Tab 5 MG PO DAILY for Blood Pressure Management, #30 TAB 0 Refills Aspirin (Aspirin) 81 Mg Chew 81 MG CHEW DAILY, TAB 0 Refills Atenolol (Atenolol) 25 Mg Tab 25 MG PO DAILY for Blood Pressure Management, #30 TAB Clopidogrel (Plavix) 75 Mg Tab 75 MG PO DAILY for Blood Clot Prevention, #30 TAB 0 Refills Simvastatin (Simvastatin) 40 Mg Tab 40 MG PO HS for Cholesterol Management, #30 TAB 0 Refills Discontinued Medications: Metoprolol Tartrate (Metoprolol Tartrate) 50 Mg Tab 50 MG PO DAILY, #30 TAB 0 Refills Liza Paige MD 21, 2018 09:59
--- NOTE | 2017-10-30 08:22 | MG ---
cc: AKBAR PATRICK M.D. Lab No: [id number] Date: 10/29/2017 Age: 81 Sex: M Race: 81-year-old man. Hyperventilation not performed. Stroke alert, right facial droop. Aspirin, Plavix. The recording shows a 8 Hz 60 microvolt posterior rhythm. Recording overall is synchronous and symmetric. I do not see any hemisphere asymmetries or epileptiform or seizure activity. At times some mild diffuse 7 Hz slowing is noted. Photic stimulation was performed without significant posterior driving. IMPRESSION Some mild diffuse theta slowing, otherwise a normal EEG. MD ASHU Joel/BOBBYL /8:01 PM /8:17 AM
== END 2017-10-29 12:45 | disposition home or self-care (01) | DRG 69 ==
LOC: NEPC 15:42 → NEDA 17:16 → N06A 20:42 → N05B 10-27 14:29
PROVIDERS: ADMIT Family Medicine; ATTEND Family Medicine
DX: G45.9 Transient cerebral ischemic attack, unspecified (principal); F05 Delirium due to known physiological condition; I11.0 Hypertensive heart disease with heart failure; I50.9 Heart failure, unspecified; I69.320 Aphasia following cerebral infarction; E78.5 Hyperlipidemia, unspecified; R29.810 Facial weakness; Z88.1 Allergy status to other antibiotic agents; Z96.653 Presence of artificial knee joint, bilateral
CPT/HCPCS: 70450; 70496; 70498; 70544; 70551; 71045; 80048; 80061; 80307; 81001; 82550; 82948; 83036; 84484; 85025; 85384; 85610; 85730; 86850; 86900; 86901; 93005; 93306; 95819; 99291; J7030; Q9967